=== PATIENT | female | born 1965 | race American Indian/Alaskan Native ===

== ENCOUNTER 2017-03-15 20:54 | Emergency (ER) | payer SELFPAY ==
[2017-03-15 22:01] LABS: Basophils % (Auto) 0.5 % (0.0-1.8); Eosinophils % (Auto) 0.6 % (0.0-4.3); Hematocrit 48.3 % (30.3-42.9); Hemoglobin 16.2 gm/dl (10.1-14.3); Mean Corpuscular HGB Conc 34 % (30-34); Mean Corpuscular Hemoglobin 30 pg (28-32); Mean Corpuscular Volume 89 fl (79-97); Platelet Count 245 K/mm3 (140-440); Red Blood Count 5.42 M/mm3 (3.65-5.03); White Blood Count 4.4 K/mm3 (4.5-11.0)
[2017-03-15 22:20] LABS: Alanine Aminotransferase 17 units/L (7-56); Albumin 4.4 g/dL (3.9-5); Albumin/Globulin Ratio 1.3 %; Alkaline Phosphatase 111 units/L (35-129); Anion Gap 20 mmol/L; BUN/Creatinine Ratio 16.25; Bilirubin,Total 0.5 mg/dL (0.1-1.2); Blood Urea Nitrogen 13 mg/dL (7-17); Calcium 9.4 mg/dL (8.4-10.2); Carbon Dioxide 18 mmol/L (22-30); Chloride 102.6 mmol/L (98-107); Glucose 104 mg/dL (65-100); Lipase 13 units/L (13-60); Potassium 3.6 mmol/L (3.6-5.0); Sodium 137 mmol/L (137-145); Total Protein 7.8 g/dL (6.3-8.2)
[2017-03-15 23:48] VITALS: BP 112/72
[2017-03-16] MEDS ORDERED: TYLENOL PO ONE
[2017-03-16 00:28] LABS: Bilirubin,Urine NEG (Negative); Blood,Urine LG (Negative); Ketones,Urine 20 mg/dL (Negative); Leukocyte Esterase,Urine SM (Negative); Mucus,Urine 3+ /HPF; Nitrite,Urine NEG (Negative); Urobilinogen,Urine < 2.0 mg/dL (<2.0)
[2017-03-16] MEDS ORDERED: TYLENOL ONE (00:49)
--- NOTE | 2017-03-17 15:16 | ED Elopement Review ---
ED Pt Elopement review - Results review Lab results: Laboratory Tests 03/15/17 03/15/17 03/15/17 21:42 21:42 23:46 WBC 4.4 L RBC 5.42 H Hgb 16.2 H Hct 48.3 H MCV 89 MCH 30 MCHC 34 RDW 14.0 Plt Count 245 Lymph % (Auto) 15.4 [place] % (Auto) 10.6 H Eos % (Auto) 0.6 Baso % (Auto) 0.5 Lymph # 0.7 L [place] # 0.5 Eos # 0.0 Baso # 0.0 Seg Neutrophils % 72.9 H Seg Neutrophils # 3.2 Sodium 137 Potassium 3.6 Chloride 102.6 Carbon Dioxide 18 L Anion Gap 20 BUN 13 Creatinine 0.8 Estimated GFR > 60 BUN/Creatinine Ratio 16.25 Glucose 104 H Calcium 9.4 Total Bilirubin 0.5 AST 18 ALT 17 Alkaline Phosphatase 111 Total Protein 7.8 Albumin 4.4 Albumin/Globulin Ratio 1.3 Lipase 13 Urine Color [place] Urine Turbidity Clear Urine pH 5.0 Ur Specific [place] 1.028 Urine Protein 30 mg/dl Urine Glucose (UA) Neg Urine Ketones 20 Urine Blood Lg Urine Nitrite Neg Urine Bilirubin Neg Urine Urobilinogen < 2.0 Ur Leukocyte Esterase Sm Urine WBC (Auto) 38.0 H Urine RBC (Auto) 10.0 U Epithel Cells (Auto) 9.0 Hyaline Casts 17 Urine Mucus 3+ - Call Back decision Pt Call Back Decision: Pt to F/U with PMD (UTI)
== END 2017-03-16 01:33 | disposition left against medical advice (07) ==
LOC: ED 20:54
DX: R10.30 Lower abdominal pain, unspecified (principal); R19.7 Diarrhea, unspecified; R11.11 Vomiting without nausea; Z53.21 Procedure and treatment not carried out due to patient leaving prior to being seen by health care provider
CPT/HCPCS: 36415; 80053; 81001; 83690; 85025

== ENCOUNTER 2018-04-13 10:19 | Emergency (ER) | payer SELFPAY ==
[2018-04-13 10:26] VITALS: BP 145/72
[2018-04-13] MEDS ORDERED: ATROVENT IH ONE (10:40)
[2018-04-13] MEDS ORDERED: PROVENTIL IH ONE (10:40)
--- NOTE | 2018-04-13 10:44 | Emergency Department Report ---
Blank Doc - Documentation Documentation: Patient is 52 years old female history of asthma and anxiety. Patient presented to the ER complaining of shortness of breath started yesterday. 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 She was seen by her primary care physician 2 days ago she was given breathing treatment that it did not help. Patient symptoms started at work. She denied any chest pain. On exam, patient is tachypneic, with decreased breath sounds on both sides. Patient will need to be managed in main ED.
== END 2018-04-13 10:50 | disposition left against medical advice (07) ==
LOC: ED 10:19
DX: R06.02 Shortness of breath (principal); F41.9 Anxiety disorder, unspecified; J45.909 Unspecified asthma, uncomplicated; Z53.21 Procedure and treatment not carried out due to patient leaving prior to being seen by health care provider

== ENCOUNTER 2020-09-15 11:16 | Emergency (ER) | payer MEDICAID, OTHER ==
--- NOTE | 2020-09-15 14:33 | Emergency Department Report ---
ED General Adult HPI - General Chief complaint: Allergic Reaction Stated complaint: SOMETHING ON MY HAND Time Seen by Provider: 09/15/20 13:25 Source: patient Mode of arrival: Ambulatory Limitations: No Limitations - History of Present Illness Initial comments: 54-year-old -[place] female patient with history of hypertension presents with complaints of runny nose and abdominal pain x1 week. Patient states she believes she is having allergic reaction to inhaling a powder at work that was meant to get rid of ants. She denies any shortness of breath, difficulty swallowing/throat pain, chest pain, cough, or fever/chills/sweats. She reports that a week ago she did have some mild vomiting, but denies any hematemesis/coffee-ground emesis, diarrhea/melena/hematochezia, or history of abdominal surgeries/GI bleeds. Patient rates her current pain is a 6/10 severity. - Related Data Previous Rx's Medication Instructions Recorded Last Taken Type Amoxicillin [Trimox CAP] 2 cap PO BID #40 capsule 12/15/13 Unknown Rx Fluticasone Propionate [Flonase] 2 spray NS QDAY #1 spray.susp 12/15/13 Unknown Rx HYDROcodone/APAP 5-325 [[place] 1 each PO Q6HR PRN #5 tablet 12/15/13 Unknown Rx 5/325 mg] Ibuprofen [Motrin 800 MG tab] 800 mg PO TID #30 tablet 12/15/13 Unknown Rx HYDROcodone/APAP 5-325 [[place] 1 each PO Q6HR PRN #15 tablet 11/14/15 Unknown Rx 5/325] Ondansetron [Zofran Odt] 4 mg PO Q8HR PRN #15 tab.rapdis 11/14/15 Unknown Rx Dicyclomine [Bentyl] 20 mg PO QID PRN #20 tablet 09/15/20 Unknown Rx Loratadine 10 mg PO QDAY PRN #10 capsule 09/15/20 Unknown Rx Allergies Allergy/AdvReac Type Severity Reaction Status Date / Time No Known Allergies Allergy Verified 04/13/18 10:26 ED Review of Systems ROS: Stated complaint: SOMETHING ON MY HAND Other details as noted in HPI Constitutional: denies: chills, diaphoresis, fever, malaise, weakness ENT: denies: throat pain Respiratory: denies: cough, shortness of breath Cardiovascular: denies: chest pain Gastrointestinal: as per HPI, abdominal pain, nausea. denies: constipation, hematemesis, melena, hematochezia Genitourinary: denies: urgency, dysuria, frequency, hematuria Musculoskeletal: denies: back pain Neurological: denies: headache, weakness, numbness, paresthesias Hematological/Lymphatic: denies: easy bleeding, easy bruising, swollen glands ED Past Medical Hx - Past Medical History Previous Medical History?: Yes Hx Hypertension: Yes - Surgical History Additional Surgical History: left shoulder surgery - Social History Smoking Status: Current Every Day Smoker - Medications Home Medications: Home Medications Medication Instructions Recorded Confirmed Last Taken Type Amoxicillin [Trimox CAP] 2 cap PO BID #40 capsule 12/15/13 Unknown Rx Fluticasone Propionate [Flonase] 2 spray NS QDAY #1 spray.susp 12/15/13 Unknown Rx HYDROcodone/APAP 5-325 [[place] 1 each PO Q6HR PRN #5 tablet 12/15/13 Unknown Rx 5/325 mg] Ibuprofen [Motrin 800 MG tab] 800 mg PO TID #30 tablet 12/15/13 Unknown Rx HYDROcodone/APAP 5-325 [[place] 1 each PO Q6HR PRN #15 tablet 11/14/15 Unknown Rx 5/325] Ondansetron [Zofran Odt] 4 mg PO Q8HR PRN #15 tab.rapdis 11/14/15 Unknown Rx Dicyclomine [Bentyl] 20 mg PO QID PRN #20 tablet 09/15/20 Unknown Rx Loratadine 10 mg PO QDAY PRN #10 capsule 09/15/20 Unknown Rx ED Physical Exam - General Limitations: No Limitations General appearance: alert, in no apparent distress - Head Head exam: Present: atraumatic, normocephalic - Eye Eye exam: Present: normal appearance. Absent: scleral icterus - ENT ENT exam: Present: normal exam, normal orophraynx, mucous membranes moist - Neck Neck exam: Present: normal inspection - Respiratory Respiratory exam: Present: normal lung sounds bilaterally. Absent: respiratory distress - Cardiovascular Cardiovascular Exam: Present: regular rate, normal rhythm. Absent: systolic murmur, diastolic murmur, rubs, gallop - GI/Abdominal GI/Abdominal exam: Present: soft, tenderness (Generalized-mild), normal bowel sounds. Absent: distended, guarding, rebound, rigid - Extremities Exam Extremities exam: Present: normal inspection - Back Exam Back exam: Present: normal inspection - Neurological Exam Neurological exam: Present: alert, oriented X3 - Psychiatric Psychiatric exam: Present: normal affect, normal mood - Skin Skin exam: Present: warm, dry, intact, normal color. Absent: rash, cyanosis, diaphoretic ED Course Vital Signs 09/15/20 09/15/20 11:37 17:09 Temperature 97.9 F Pulse Rate 64 64 Respiratory 20 16 Rate Blood Pressure 166/84 Blood Pressure 156/84 [Left] O2 Sat by Pulse 95 99 Oximetry ED Medical Decision Making - Lab Data Result diagrams: 09/15/20 15:23 09/15/20 15:23 Lab Results 09/15/20 09/15/20 09/15/20 Range/Units 15:23 15:23 Unknown WBC 4.1 L (4.5-11.0) K/mm3 RBC 4.85 (3.65-5.03) M/mm3 Hgb 14.4 H (10.1-14.3) gm/dl Hct 43.6 H (30.3-42.9) % MCV 90 (79-97) fl MCH 30 (28-32) pg MCHC 33 (30-34) % RDW 13.0 L (13.2-15.2) % Plt Count 295 (140-440) K/mm3 Lymph % (Auto) 39.1 H (13.4-35.0) % [place] % (Auto) 10.8 H (0.0-7.3) % Eos % (Auto) 1.4 (0.0-4.3) % Baso % (Auto) 0.9 (0.0-1.8) % Lymph # (Auto) 1.6 (1.2-5.4) K/mm3 [place] # (Auto) 0.4 (0.0-0.8) K/mm3 Eos # (Auto) 0.1 (0.0-0.4) K/mm3 Baso # (Auto) 0.0 (0.0-0.1) K/mm3 Seg Neutrophils % 47.8 (40.0-70.0) % Seg Neutrophils # 2.0 (1.8-7.7) K/mm3 Sodium 140 (137-145) mmol/L Potassium 4.3 (3.6-5.0) mmol/L Chloride 103.0 (98-107) mmol/L Carbon Dioxide 28 (22-30) mmol/L Anion Gap 13 mmol/L BUN 19 H (7-17) mg/dL Creatinine 0.9 (0.6-1.2) mg/dL Estimated GFR > 60 ml/min BUN/Creatinine Ratio 21 % Glucose 87 (65-100) mg/dL Calcium 9.6 (8.4-10.2) mg/dL Total Bilirubin 0.30 (0.1-1.2) mg/dL AST 16 (5-40) units/L ALT 11 (7-56) units/L Alkaline Phosphatase 102 (35-129) units/L Total Protein 7.0 (6.3-8.2) g/dL Albumin 4.2 (3.9-5) g/dL Albumin/Globulin Ratio 1.5 % Lipase 16 (13-60) units/L Urine Color Yellow (Yellow) Urine Turbidity Clear (Clear) Urine pH 5.0 (5.0-7.0) Ur Specific [place] 1.023 (1.003-1.030) Urine Protein <15 mg/dl (Negative) mg/dL Urine Glucose (UA) Neg (Negative) mg/dL Urine Ketones Tr (Negative) mg/dL Urine Blood Sm (Negative) Urine Nitrite Neg (Negative) Urine Bilirubin Neg (Negative) Urine Urobilinogen 2.0 (<2.0) mg/dL Ur Leukocyte Esterase Neg (Negative) Urine WBC (Auto) 2.0 (0.0-6.0) /HPF Urine RBC (Auto) 3.0 (0.0-6.0) /HPF U Epithel Cells (Auto) 3.0 (0-13.0) /HPF Urine Mucus 2+ /HPF - Medical Decision Making 54-year-old -[place] female patient with history of hypertension presents with complaints of runny nose and abdominal pain x1 week. Patient states she believes she is having allergic reaction to inhaling a powder at work that was meant to get rid of ants. She denies any shortness of breath, difficulty swallowing/throat pain, chest pain, cough, or fever/chills/sweats. She reports that a week ago she did have some mild vomiting, but denies any hematemesis/coffee-ground emesis, diarrhea/melena/hematochezia, or history of abdominal surgeries/GI bleeds. Patient rates her current pain is a 6/10 severity. On exam, patient has generalized mild tenderness of the abdomen without guarding or rebound. Negative Funes sign and McBurney point tenderness. CBC, CMP, lipase, and UA are without acute findings. Recommend follow-up with gastroenterology and PCP. Her vitals are normal and she is well-appearing. Patient stable for discharge home. Strict return precautions were discussed in detail with patient who verbalized understanding. Critical care attestation.: If time is entered above; I have spent that time in minutes in the direct care of this critically ill patient, excluding procedure time. ED Disposition Clinical Impression: Abdominal pain, generalized Disposition: DC-01 TO HOME OR SELFCARE Is pt being admited?: No Condition: Stable Instructions: Abdominal Pain (ED) Prescriptions: Dicyclomine [Bentyl] 20 mg PO QID PRN #20 tablet PRN Reason: Abdominal cramping Loratadine 10 mg PO QDAY PRN #10 capsule PRN Reason: Congestion/runny nose Referrals: [facility] [Provider Group] - 3-5 Days PRIMARY CARE,MD [Primary Care Provider] - 3-5 Days Forms: Work/School Release Form(ED)
[2020-09-15 15:56] LABS: Alanine Aminotransferase 11 units/L (7-56); Albumin 4.2 g/dL (3.9-5); BUN/Creatinine Ratio 21; Blood Urea Nitrogen 19 mg/dL (7-17); Calcium 9.6 mg/dL (8.4-10.2); Hemolysis Index 9
[2020-09-15 16:02] LABS: Basophils % (Auto) 0.9 % (0.0-1.8); Eosinophils # (Auto) 0.1 K/mm3 (0.0-0.4); Eosinophils % (Auto) 1.4 % (0.0-4.3); Hematocrit 43.6 % (30.3-42.9); Hemoglobin 14.4 gm/dl (10.1-14.3); Lymphocytes # (Auto) 1.6 K/mm3 (1.2-5.4); Lymphocytes % (Auto) 39.1 % (13.4-35.0); Mean Corpuscular HGB Conc 33 % (30-34); Mean Corpuscular Volume 90 fl (79-97); Monocytes # (Auto) 0.4 K/mm3 (0.0-0.8); Monocytes % (Auto) 10.8 % (0.0-7.3); Platelet Count 295 K/mm3 (140-440); Red Blood Count 4.85 M/mm3 (3.65-5.03)
[2020-09-15 16:41] LABS: Bilirubin,Urine NEG (Negative); Blood,Urine SM (Negative); Color,Urine Yellow (Yellow); Mucus,Urine 2+ /HPF; Protein,Urine <15 mg/dL mg/dL (Negative)
[2020-09-15 17:10] VITALS: BP 156/84
== END 2020-09-15 17:09 | disposition home or self-care (01) ==
LOC: ED 11:16
DX: R10.84 Generalized abdominal pain (principal); R53.1 Weakness; I10 Essential (primary) hypertension; F17.200 Nicotine dependence, unspecified, uncomplicated; Z79.899 Other long term (current) drug therapy; Z98.890 Other specified postprocedural states
CPT/HCPCS: 36415; 80053; 81001; 83690; 85025; 99283